=== PATIENT | male | born 1955 | race Hispanic/Latino ===

== ENCOUNTER → 2024-10-09 | Outpatient (CLI) | payer OTHER ==
--- NOTE | 2024-10-10 03:56 | HMCIMG ---
EXAM: CR Chest, 2 views CLINICAL HISTORY: Pain in the thoracic spine. COMPARISON: None provided. FINDINGS: Mildly blunted bilateral posterior CP angles, concerning for small pleural thickening or pleural effusion. Hyperinflated lungs, likely mild COPD. No pneumothorax. The cardiac size is within normal limits. Right sided cardiac pacemaker device in place. No acute osseous abnormality. Mild thoracic spondylosis. IMPRESSION: Mildly blunted bilateral posterior CP angles, concerning for small pleural thickening or pleural effusion. Mild COPD. Mild thoracic spondylosis. /[place]
--- NOTE | 2024-10-10 09:33 | HMCIMG ---
EXAMINATION: ULTRASOUND OF THE RETROPERITONEUM. CLINICAL HISTORY: CKD. COMPARISON: None. TECHNIQUE: Real-time grayscale ultrasound images of the kidneys. FINDINGS: The kidneys are normal in caliber, the right kidney measures 9.0 x 4.3 x 4.5 cm and the left kidney measures 9.1 x 4.5 x 4.6 cm in its craniocaudal, AP, and transverse dimensions respectively. There is normal renal cortical thickness, and increased cortical echogenicity. There is no renal calculus or hydronephrosis. The urinary bladder is partially distended with normal wall thickness (0.6 cm). There are no calculi in the urinary bladder. IMPRESSION: Bilateral renal parenchymal disease. /[place]
== END | disposition home or self-care (01) ==
LOC: RAH 11:06
PROVIDERS: ATTEND Internal Medicine
DX: J44.9 Chronic obstructive pulmonary disease, unspecified (principal); M47.814 Spondylosis without myelopathy or radiculopathy, thoracic region; N28.89 Other specified disorders of kidney and ureter; N18.31 Chronic kidney disease, stage 3a; M54.6 Pain in thoracic spine
CPT/HCPCS: 71046; 76770